=== PATIENT | female | born 1955 | race Caucasian/White ===

== ENCOUNTER 2017-06-10 06:44 | Outpatient (CLI) | payer BC ==
--- NOTE | 2017-06-10 10:26 | MRI ---
MRI BRAIN WITH AND WITHOUT IV CONTRAST: DATE: 06/10/17. HISTORY: Cognitive decline. COMPARISON: Studies on 02/09/16 and 03/01/16. FINDINGS: Again noted are increased punctate and patchy areas of increased FLAIR and T2 weighted signal intensi ty in the periventricular and subcortical white matter most likely reflective of moderate chronic sma ll-vessel ischemic changes. There is no evidence of an acute infarction. No abnormal areas of enhan cement are seen after the administration of intravenous contrast. Mild cerebral volume loss is present. Septum pellucidum and third ventricle are in the midline. The ventricular system is normal in size, shape, and position for the degree of sulcal atrophy. Normal flow voids are demonstrated at the base of the brain. There has been no interval change when compare d to the prior exam. IMPRESSION: 1. No acute intracranial abnormalities demonstrated. 2. Stable chronic small-vessel ischemic changes and cerebral volume loss. 3. Minimal mucosal thickening in left sphenoid sinus. POS: [facility]
[2017-06-10] MEDS ORDERED: Gadobenate Dimeglumine 529 MG/1 ML (20ML VIAL) ONE (16:49)
== END 2017-06-10 06:45 | disposition home or self-care (01) ==
LOC: MRI 06:44
PROVIDERS: ATTEND Family Medicine
DX: R41.81 Age-related cognitive decline (principal); J34.89 Other specified disorders of nose and nasal sinuses; R94.02 Abnormal brain scan
CPT/HCPCS: 36415; 70553; 82565; A9579

== ENCOUNTER 2017-07-16 10:17 | Outpatient (CLI) | payer BC | END 2017-07-16 10:18 | disposition home or self-care (01) | LOC: BICMAMMO 10:17 | PROVIDERS: ATTEND Family Medicine | DX: Z12.31 Encounter for screening mammogram for malignant neoplasm of breast (principal); R41.89 Other symptoms and signs involving cognitive functions and awareness | CPT/HCPCS: 77063; 77067 ==

== ENCOUNTER 2018-05-01 07:53 | Outpatient (CLI) | payer BC ==
--- NOTE | 2018-05-01 09:42 | ULT ---
ULTRASOUND HEPATIC DOPPLER DUPLEX: DATE: 05/01/2018. HISTORY: 62-year-old female with cirrhosis. TECHNIQUE: Villanueva scale images of liver and spleen. Color flow and spectral analysis of major blood vessels is associated with the liver. FINDINGS: No hepatomegaly. Hepatic echotexture is diffusely coarse. Hepatic margins are mildly nodular. Gallbladder is surgically absent. The common duct caliber is 7 mm. Spleen is 15.5 x 6 x 5.5 cm. Lobular splenic hilum. Prominent blood vessels at the splenic hilum. Hepatopetal flow with appropriate waveforms in main, left, and right portal veins. Hepatofugal flow with appropriate waveforms in right, middle, and left hepatic veins. Hepatic artery flow demonstrated. IMPRESSION: 1. Hepatic cirrhosis. 2. Splenomegaly. POS: [facility]
== END 2018-05-01 07:54 | disposition home or self-care (01) ==
LOC: BICULT 07:53
PROVIDERS: ATTEND Internal Medicine Gastroenterology
DX: K75.4 Autoimmune hepatitis (principal); K74.60 Unspecified cirrhosis of liver; R16.1 Splenomegaly, not elsewhere classified; Z86.010 Personal history of colon polyps
CPT/HCPCS: 76705

== ENCOUNTER 2020-11-17 22:45 | Inpatient (IN) | payer MEDICARE ==
[2020-11-18] MEDS ORDERED: Lactulose 10 GM/15 ML Oral Solution PR SCH ×2 (01:45)
[2020-11-18] MEDS ORDERED: Albumin 25% 25 GM/100 ML BOT IVPB SCH (02:15)
[2020-11-18] MEDS: cefTRIAXone\\ROCEPHIN 1 GM in Sodium Chloride 0.9% 100 ML IVPB SCH (04:46)
[2020-11-18 07:19] LABS: #Eosinphils 0.2 thou/uL (0.0-0.7); #Lymphocytes 0.9 thou/uL (1.20-3.40); #Monocytes 0.3 thou/uL (0.11-0.59); #Neutrophils 4.8 thou/uL (1.40-6.50); %Basophils 0.1 % (0.0-1.0); %Eosinophils 2.8 % (0.0-10.0); %Lymphocytes 14.2 % (21.0-51.0); %Monocytes 5.1 % (0.0-10.0); %Neutrophils 77.8 % (42.0-75.0); Hemoglobin 10.3 g/dL (12.0-16.0); Mean Corpuscular HGB CONC 33.1 g/dL (32.0-36.0); Mean Corpuscular Hemoglobin 33.2 pg (27.0-31.0); Mean Platelet Volume 11.7 fL (7.4-10.4); Platelet Count 35 thou/uL (130-400); RBC Distribution Width 18.4 % (11.5-14.5); Red Blood Cell (RBC) Count 3.12 mill/uL (4.20-5.40); White Blood Cell (WBC) Count 6.2 thou/uL (4.8-10.8)
[2020-11-18 07:25] LABS: ALT (SGPT) 115 U/L (8-55); AST (SGOT) 243 U/L (5-34); Albumin 2.4 g/dL (3.4-4.8); Alkaline Phosphatase 136 U/L (40-110); Anion Gap 18 mmol/L (10-20); BUN (Urea Nitrogen) 101 mg/dL (9.8-20.1); Bilirubin, Total 6.6 mg/dL (0.2-1.2); Calc. Creatinine Clearance 33 mL/min (70-130); Calcium 8.5 mg/dL (7.8-10.44); Carbon Dioxide 22 mmol/L (23-31); Chloride 100 mmol/L (98-107); Globulin 3.8 g/dL (2.4-3.5); Glucose 95 mg/dL (80-115); Potassium 4.6 mmol/L (3.5-5.1); Protein, Total 6.2 g/dL (5.8-8.1); Sodium 135 mmol/L (136-145)
[2020-11-18] MEDS: Albumin 25% 25 GM/100 ML BOT IVPB SCH ×3 (08:47→23:03)
[2020-11-18] MEDS ORDERED: Pantoprazole 40 MG VIAL IVP SCH (09:00)
[2020-11-18 12:51] LABS: SARS-CoV-2 PCR by NAA Not Detected (NotDetected)
[2020-11-18] MEDS: Midodrine HCl 5 MG TAB PO SCH ×2 (15:45→21:13)
[2020-11-18] MEDS: methylPREDNISolone Sod Succ 40 MG VIAL IVP SCH (15:45)
[2020-11-18] MEDS ORDERED: Vancomycin HCl 1.75 GM in Sodium Chloride 0.9% 500 ML IVPB SCH (18:15)
[2020-11-18] MEDS ORDERED: Vancomycin HCl 1 GM in Premix Bag 1 BAG IVPB SCH (18:15)
[2020-11-18] MEDS: Donepezil HCl 10 MG TAB PER TUBE SCH (21:13)
[2020-11-18] MEDS: Octreotide Acetate 100 MCG/ML VIAL SC SCH (22:19)
[2020-11-19] MEDS: methylPREDNISolone Sod Succ 40 MG VIAL IVP SCH ×2 (01:30→14:27)
[2020-11-19] MEDS: cefTRIAXone\\ROCEPHIN 1 GM in Sodium Chloride 0.9% 100 ML IVPB SCH (04:25)
[2020-11-19 05:02] LABS: HBCM Index 0.07 S/CO (0-0.79); HBSAg Index 0.29 S/CO (0-0.99); Hep A IgM AB Non-Reactive (NonReactive); Hep A IgM S/CO 0.12 S/CO (0-0.79); Hep B Surf Ag Non-Reactive S/CO (NonReactive); Hep C IgG Ab Non-Reactive (NonReactive); Hep C Index 0.15 S/CO (0-0.79); Hepatitis B Core IgM Abs Non-Reactive (NonReactive)
[2020-11-19 05:37] LABS: INR-International Normal Ratio 2.2; Prothrombin Time 24.8 sec (12.0-14.7)
[2020-11-19 05:43] LABS: Albumin 3.3 g/dL (3.4-4.8); Hemoglobin 9.3 g/dL (12.0-16.0); Mean Corpuscular HGB CONC 34.3 g/dL (32.0-36.0); Mean Corpuscular Hemoglobin 34.5 pg (27.0-31.0); Mean Platelet Volume 11.9 fL (7.4-10.4); Platelet Count 29 thou/uL (130-400); RBC Distribution Width 18.4 % (11.5-14.5); Red Blood Cell (RBC) Count 2.68 mill/uL (4.20-5.40); White Blood Cell (WBC) Count 2.8 thou/uL (4.8-10.8)
[2020-11-19 05:44] LABS: Chloride 108 mmol/L (98-107); Potassium 3.9 mmol/L (3.5-5.1); Sodium 145 mmol/L (136-145)
[2020-11-19 05:45] LABS: Calcium 8.8 mg/dL (7.8-10.44); Glucose 186 mg/dL (80-115)
[2020-11-19 05:46] LABS: Globulin 3.4 g/dL (2.4-3.5); Protein, Total 6.7 g/dL (5.8-8.1)
[2020-11-19 05:47] LABS: Anion Gap 20 mmol/L (10-20); Bilirubin, Total 5.1 mg/dL (0.2-1.2); Carbon Dioxide 21 mmol/L (23-31)
[2020-11-19 05:48] LABS: Alkaline Phosphatase 109 U/L (40-110)
[2020-11-19 05:49] LABS: Calc. Creatinine Clearance 32 mL/min (70-130)
[2020-11-19 05:50] LABS: BUN (Urea Nitrogen) 111 mg/dL (9.8-20.1)
[2020-11-19 05:51] LABS: ALT (SGPT) 97 U/L (8-55); AST (SGOT) 207 U/L (5-34)
[2020-11-19 06:14] LABS: Protein, Urine Random Quant 11 mg/dL (1-14); Sodium, Urine Less than 20 mmol/L (Not Available); Urea Nitrogen, Random Urine 744 mg/dl
[2020-11-19 06:14] LABS: #Eosinphils 0.1 thou/uL (0.0-0.7); #Lymphocytes 0.2 thou/uL (1.20-3.40); #Monocytes 0.1 thou/uL (0.11-0.59); #Neutrophils 2.4 thou/uL (1.40-6.50); %Eosinophils 2.9 % (0.0-10.0); %Lymphocytes 8.5 % (21.0-51.0); %Monocytes 5.1 % (0.0-10.0); %Neutrophils 83.6 % (42.0-75.0); Platelet Morphology Comment Appears Decreased
[2020-11-19] MEDS: Octreotide Acetate 100 MCG/ML VIAL SC SCH ×3 (06:28→21:27)
[2020-11-19] MEDS ORDERED: Sodium Bicarbonate 150 MEQ in Dextrose 5% in Water 1,000 ML IV SCH (09:15)
[2020-11-19] MEDS: Donepezil HCl 10 MG TAB PER TUBE SCH ×2 (10:02→20:49)
[2020-11-19] MEDS: Ferrous Gluconate 324 MG TAB PO SCH (10:02)
[2020-11-19] MEDS: azaTHIOprine 50 MG TAB PO SCH (10:02)
[2020-11-19] MEDS: Albumin 25% 25 GM/100 ML BOT IVPB SCH ×3 (10:03→20:49)
[2020-11-19] MEDS: Midodrine HCl 5 MG TAB PO SCH ×3 (10:03→20:49)
[2020-11-19] MEDS: Pantoprazole 40 MG GRANULES PACKET PER TUBE SCH (10:03)
[2020-11-19 18:23] LABS: Vancomycin, Random 23.2 ug/mL (See Comment)
[2020-11-20] MEDS: methylPREDNISolone Sod Succ 40 MG VIAL IVP SCH ×2 (02:53→13:44)
[2020-11-20] MEDS: Albumin 25% 25 GM/100 ML BOT IVPB SCH ×4 (02:54→22:23)
[2020-11-20] MEDS: cefTRIAXone\\ROCEPHIN 1 GM in Sodium Chloride 0.9% 100 ML IVPB SCH (04:00)
[2020-11-20] MEDS: Octreotide Acetate 100 MCG/ML VIAL SC SCH ×3 (05:20→22:23)
[2020-11-20 07:36] LABS: Hemoglobin 7.9 g/dL (12.0-16.0); Mean Corpuscular HGB CONC 33.5 g/dL (32.0-36.0); Mean Platelet Volume 11.9 fL (7.4-10.4); Platelet Count 21 thou/uL (130-400); RBC Distribution Width 18.5 % (11.5-14.5); Red Blood Cell (RBC) Count 2.31 mill/uL (4.20-5.40)
[2020-11-20 07:52] LABS: ALT (SGPT) 68 U/L (8-55); AST (SGOT) 122 U/L (5-34); Albumin 3.6 g/dL (3.4-4.8); Alkaline Phosphatase 82 U/L (40-110); Anion Gap 17 mmol/L (10-20); BUN (Urea Nitrogen) 111 mg/dL (9.8-20.1); Bilirubin, Total 3.6 mg/dL (0.2-1.2); Calc. Creatinine Clearance 34 mL/min (70-130); Calcium 9.3 mg/dL (7.8-10.44); Carbon Dioxide 25 mmol/L (23-31); Chloride 109 mmol/L (98-107); Globulin 2.6 g/dL (2.4-3.5); Glucose 175 mg/dL (80-115); Protein, Total 6.2 g/dL (5.8-8.1); Sodium 148 mmol/L (136-145)
[2020-11-20 07:57] LABS: Potassium 2.8 mmol/L (3.5-5.1)
[2020-11-20] MEDS: Pantoprazole 40 MG GRANULES PACKET PER TUBE SCH (08:04)
[2020-11-20] MEDS: Midodrine HCl 5 MG TAB PO SCH ×3 (08:04→20:13)
[2020-11-20] MEDS: Donepezil HCl 10 MG TAB PER TUBE SCH ×2 (08:04→20:14)
[2020-11-20] MEDS: Ferrous Gluconate 324 MG TAB PO SCH (08:04)
[2020-11-20] MEDS: azaTHIOprine 50 MG TAB PO SCH (08:04)
[2020-11-20 09:21] LABS: Magnesium 3.2 mg/dL (1.6-2.6)
[2020-11-20 09:22] LABS: Phosphorus 3.2 mg/dL (2.3-4.7)
[2020-11-20] MEDS: Potassium Chloride 20 MEQ TAB PER TUBE SCH ×2 (13:43→16:37)
[2020-11-20 22:09] LABS: Vancomycin, Random 15.9 ug/mL (See Comment)
[2020-11-20] MEDS ORDERED: Vancomycin HCl 750 MG in Sodium Chloride 0.9% 250 ML 250 ML IVPB SCH (23:00)
[2020-11-21] MEDS: methylPREDNISolone Sod Succ 40 MG VIAL IVP SCH ×2 (01:43→14:15)
[2020-11-21] MEDS: cefTRIAXone\\ROCEPHIN 1 GM in Sodium Chloride 0.9% 100 ML IVPB SCH (03:03)
[2020-11-21] MEDS: Albumin 25% 25 GM/100 ML BOT IVPB SCH (05:03)
[2020-11-21] MEDS: Octreotide Acetate 100 MCG/ML VIAL SC SCH ×3 (05:22→22:41)
[2020-11-21 06:40] LABS: Hemoglobin 7.3 g/dL (12.0-16.0); Mean Corpuscular HGB CONC 32.8 g/dL (32.0-36.0); Mean Corpuscular Hemoglobin 33.6 pg (27.0-31.0); Mean Platelet Volume 10.7 fL (7.4-10.4); Platelet Count 33 thou/uL (130-400); RBC Distribution Width 18.4 % (11.5-14.5); Red Blood Cell (RBC) Count 2.16 mill/uL (4.20-5.40)
[2020-11-21 07:08] LABS: ALT (SGPT) 56 U/L (8-55); AST (SGOT) 86 U/L (5-34); Albumin 4.2 g/dL (3.4-4.8); Alkaline Phosphatase 74 U/L (40-110); Anion Gap 16 mmol/L (10-20); BUN (Urea Nitrogen) 115 mg/dL (9.8-20.1); Bilirubin, Total 3.4 mg/dL (0.2-1.2); Calc. Creatinine Clearance 35 mL/min (70-130); Calcium 9.4 mg/dL (7.8-10.44); Carbon Dioxide 29 mmol/L (23-31); Chloride 115 mmol/L (98-107); Globulin 2.2 g/dL (2.4-3.5); Glucose 185 mg/dL (80-115); Protein, Total 6.4 g/dL (5.8-8.1); Sodium 157 mmol/L (136-145)
[2020-11-21] MEDS: Ferrous Gluconate 324 MG TAB PO SCH (08:43)
[2020-11-21] MEDS: Midodrine HCl 5 MG TAB PO SCH ×3 (08:43→21:10)
[2020-11-21] MEDS: Donepezil HCl 10 MG TAB PER TUBE SCH ×2 (08:43→21:10)
[2020-11-21] MEDS: azaTHIOprine 50 MG TAB PO SCH (08:43)
[2020-11-21] MEDS: Pantoprazole 40 MG GRANULES PACKET PER TUBE SCH (08:43)
[2020-11-21] MEDS: Potassium Chloride 20 MEQ TAB PO SCH ×4 (10:20→21:10)
[2020-11-21] MEDS ORDERED: Dextrose 5% in Water 1,000 ML IV SCH (13:15)
[2020-11-21 22:39] LABS: Vancomycin, Random 21.9 ug/mL (See Comment)
[2020-11-22] MEDS: methylPREDNISolone Sod Succ 40 MG VIAL IVP SCH ×2 (02:02→13:59)
[2020-11-22 04:33] LABS: Hemoglobin 8.1 g/dL (12.0-16.0); Mean Corpuscular HGB CONC 32.5 g/dL (32.0-36.0); Mean Corpuscular Hemoglobin 33.9 pg (27.0-31.0); Mean Platelet Volume 10.4 fL (7.4-10.4); Platelet Count 39 thou/uL (130-400); RBC Distribution Width 18.8 % (11.5-14.5); Red Blood Cell (RBC) Count 2.38 mill/uL (4.20-5.40); White Blood Cell (WBC) Count 4.8 thou/uL (4.8-10.8)
[2020-11-22 04:38] LABS: ALT (SGPT) 53 U/L (8-55); AST (SGOT) 69 U/L (5-34); Alkaline Phosphatase 98 U/L (40-110); Anion Gap 11 mmol/L (10-20); BUN (Urea Nitrogen) 113 mg/dL (9.8-20.1); Bilirubin, Total 3.7 mg/dL (0.2-1.2); Calc. Creatinine Clearance 36 mL/min (70-130); Calcium 9.4 mg/dL (7.8-10.44); Carbon Dioxide 31 mmol/L (23-31); Chloride 120 mmol/L (98-107); Globulin 2.5 g/dL (2.4-3.5); Glucose 285 mg/dL (80-115); Potassium 3.9 mmol/L (3.5-5.1); Protein, Total 6.5 g/dL (5.8-8.1); Sodium 158 mmol/L (136-145)
[2020-11-22] MEDS: cefTRIAXone\\ROCEPHIN 1 GM in Sodium Chloride 0.9% 100 ML IVPB SCH (05:49)
[2020-11-22] MEDS: Octreotide Acetate 100 MCG/ML VIAL SC SCH ×3 (05:55→21:08)
[2020-11-22] MEDS: azaTHIOprine 50 MG TAB PO SCH (08:11)
[2020-11-22] MEDS: Donepezil HCl 10 MG TAB PER TUBE SCH ×2 (08:11→20:25)
[2020-11-22] MEDS: Midodrine HCl 5 MG TAB PO SCH ×3 (08:11→20:25)
[2020-11-22] MEDS: Pantoprazole 40 MG GRANULES PACKET PER TUBE SCH (08:11)
[2020-11-22] MEDS: Ferrous Gluconate 324 MG TAB PO SCH (08:11)
[2020-11-22] MEDS: Dextrose 5% in Water 1,000 ML IV SCH ×2 (09:43→17:54)
[2020-11-22 16:06] LABS: Anion Gap 12 mmol/L (10-20); BUN (Urea Nitrogen) 108 mg/dL (9.8-20.1); Calc. Creatinine Clearance 37 mL/min (70-130); Calcium 8.9 mg/dL (7.8-10.44); Carbon Dioxide 29 mmol/L (23-31); Chloride 115 mmol/L (98-107); Glucose 381 mg/dL (80-115); Potassium 3.6 mmol/L (3.5-5.1); Sodium 152 mmol/L (136-145)
[2020-11-22 23:41] LABS: Vancomycin, Random 15.5 ug/mL (See Comment)
[2020-11-22] MEDS ORDERED: Vancomycin HCl 500 MG in Sodium Chloride 0.9% 100 ML IVPB SCH (23:59)
[2020-11-23] MEDS: methylPREDNISolone Sod Succ 40 MG VIAL IVP SCH ×2 (01:08→14:34)
[2020-11-23] MEDS: Dextrose 5% in Water 1,000 ML IV SCH (04:36)
[2020-11-23] MEDS: cefTRIAXone\\ROCEPHIN 1 GM in Sodium Chloride 0.9% 100 ML IVPB SCH (04:36)
[2020-11-23] MEDS: Octreotide Acetate 100 MCG/ML VIAL SC SCH ×3 (05:17→21:35)
[2020-11-23 07:14] LABS: Mean Corpuscular HGB CONC 32.4 g/dL (32.0-36.0); Mean Corpuscular Hemoglobin 33.7 pg (27.0-31.0); Mean Platelet Volume 12.4 fL (7.4-10.4); Platelet Count 30 thou/uL (130-400); RBC Distribution Width 18.7 % (11.5-14.5); Red Blood Cell (RBC) Count 2.67 mill/uL (4.20-5.40); White Blood Cell (WBC) Count 7.6 thou/uL (4.8-10.8)
[2020-11-23 07:19] LABS: ALT (SGPT) 44 U/L (8-55); AST (SGOT) 47 U/L (5-34); Albumin 3.4 g/dL (3.4-4.8); Alkaline Phosphatase 86 U/L (40-110); Anion Gap 12 mmol/L (10-20); BUN (Urea Nitrogen) 104 mg/dL (9.8-20.1); Bilirubin, Total 4.5 mg/dL (0.2-1.2); Calc. Creatinine Clearance 42 mL/min (70-130); Calcium 8.5 mg/dL (7.8-10.44); Carbon Dioxide 28 mmol/L (23-31); Chloride 109 mmol/L (98-107); Globulin 2.5 g/dL (2.4-3.5); Glucose 299 mg/dL (80-115); Potassium 3.5 mmol/L (3.5-5.1); Protein, Total 5.9 g/dL (5.8-8.1); Sodium 145 mmol/L (136-145)
[2020-11-23] MEDS: Pantoprazole 40 MG GRANULES PACKET PER TUBE SCH (08:06)
[2020-11-23] MEDS: Midodrine HCl 5 MG TAB PO SCH ×3 (08:06→21:35)
[2020-11-23] MEDS: azaTHIOprine 50 MG TAB PO SCH (08:06)
[2020-11-23] MEDS: Donepezil HCl 10 MG TAB PER TUBE SCH ×2 (08:06→21:35)
[2020-11-23] MEDS ORDERED: Potassium Chloride 20 MEQ TAB PER TUBE SCH (14:15)
[2020-11-23 23:57] LABS: Vancomycin, Random 15.5 ug/mL (See Comment)
[2020-11-24] MEDS: Scopolamine 1.5 mg/72 hour Patch TD SCH (00:03)
[2020-11-24] MEDS ORDERED: Vancomycin HCl 500 MG in Sodium Chloride 0.9% 100 ML IVPB SCH (00:30)
[2020-11-24] MEDS: methylPREDNISolone Sod Succ 40 MG VIAL IVP SCH ×2 (01:13→14:20)
[2020-11-24] MEDS: cefTRIAXone\\ROCEPHIN 1 GM in Sodium Chloride 0.9% 100 ML IVPB SCH (03:58)
[2020-11-24] MEDS: Octreotide Acetate 100 MCG/ML VIAL SC SCH (06:23)
[2020-11-24 06:36] LABS: Hemoglobin 8.8 g/dL (12.0-16.0); Mean Corpuscular HGB CONC 32.6 g/dL (32.0-36.0); Mean Corpuscular Hemoglobin 33.6 pg (27.0-31.0); Mean Platelet Volume 12.1 fL (7.4-10.4); Platelet Count 30 thou/uL (130-400); RBC Distribution Width 18.3 % (11.5-14.5); Red Blood Cell (RBC) Count 2.63 mill/uL (4.20-5.40); White Blood Cell (WBC) Count 8.8 thou/uL (4.8-10.8)
[2020-11-24 06:45] LABS: ALT (SGPT) 42 U/L (8-55); AST (SGOT) 40 U/L (5-34); Albumin 3.1 g/dL (3.4-4.8); Alkaline Phosphatase 90 U/L (40-110); Anion Gap 12 mmol/L (10-20); BUN (Urea Nitrogen) 108 mg/dL (9.8-20.1); Bilirubin, Total 5.4 mg/dL (0.2-1.2); Calc. Creatinine Clearance 43 mL/min (70-130); Calcium 8.4 mg/dL (7.8-10.44); Carbon Dioxide 26 mmol/L (23-31); Chloride 109 mmol/L (98-107); Globulin 2.5 g/dL (2.4-3.5); Glucose 411 mg/dL (80-115); INR-International Normal Ratio 3.1; Protein, Total 5.6 g/dL (5.8-8.1); Prothrombin Time 32.3 sec (12.0-14.7); Sodium 143 mmol/L (136-145)
[2020-11-24] MEDS: Lactated Ringer's 1,000 ML IV SCH ×2 (09:10→18:19)
[2020-11-24] MEDS: Pantoprazole 40 MG GRANULES PACKET PER TUBE SCH (09:11)
[2020-11-24] MEDS: azaTHIOprine 50 MG TAB PO SCH (09:11)
[2020-11-24] MEDS: Midodrine HCl 5 MG TAB PO SCH (09:11)
[2020-11-24 16:50] LABS: Albumin 3.1 g/dL (3.4-4.8); Anion Gap 14 mmol/L (10-20); BUN (Urea Nitrogen) 108 mg/dL (9.8-20.1); BUN/Creatinine Ratio 57.45; Calc. Creatinine Clearance 46 mL/min (70-130); Calcium 8.4 mg/dL (7.8-10.44); Carbon Dioxide 23 mmol/L (23-31); Chloride 112 mmol/L (98-107); Glucose 438 mg/dL (80-115); Phosphorus 2.3 mg/dL (2.3-4.7); Potassium 4.8 mmol/L (3.5-5.1); Sodium 144 mmol/L (136-145)
[2020-11-24] MEDS ORDERED: Dextrose 50% Abboject 50 ML SYRINGE SLOW IVP PRN (19:40)
[2020-11-24] MEDS ORDERED: Dextrose 5% in Water 1,000 ML IV PRN (19:40)
[2020-11-24] MEDS: HumaLOG 300 UNITS/3 ML VIAL SC PRN (21:14)
[2020-11-25] MEDS: methylPREDNISolone Sod Succ 40 MG VIAL IVP SCH ×2 (02:01→14:54)
[2020-11-25] MEDS: Lactated Ringer's 1,000 ML IV SCH ×2 (03:42→14:54)
[2020-11-25] MEDS: HumaLOG 300 UNITS/3 ML VIAL SC PRN ×4 (04:01→21:03)
[2020-11-25 06:23] LABS: Mean Corpuscular HGB CONC 33.2 g/dL (32.0-36.0); Mean Corpuscular Hemoglobin 34.4 pg (27.0-31.0); Mean Platelet Volume 12.7 fL (7.4-10.4); Platelet Count 28 thou/uL (130-400); RBC Distribution Width 18.6 % (11.5-14.5); Red Blood Cell (RBC) Count 2.63 mill/uL (4.20-5.40); White Blood Cell (WBC) Count 13.9 thou/uL (4.8-10.8)
[2020-11-25 06:40] LABS: Phosphorus 2.1 mg/dL (2.3-4.7)
[2020-11-25 06:45] LABS: ALT (SGPT) 43 U/L (8-55); AST (SGOT) 48 U/L (5-34); Albumin 2.8 g/dL (3.4-4.8); Alkaline Phosphatase 86 U/L (40-110); Anion Gap 11 mmol/L (10-20); BUN (Urea Nitrogen) 107 mg/dL (9.8-20.1); Bilirubin, Total 5.3 mg/dL (0.2-1.2); Calc. Creatinine Clearance 46 mL/min (70-130); Calcium 8.5 mg/dL (7.8-10.44); Carbon Dioxide 25 mmol/L (23-31); Chloride 113 mmol/L (98-107); Globulin 2.6 g/dL (2.4-3.5); Glucose 419 mg/dL (80-115); Magnesium 2.8 mg/dL (1.6-2.6); Potassium 3.9 mmol/L (3.5-5.1); Protein, Total 5.4 g/dL (5.8-8.1); Sodium 145 mmol/L (136-145)
[2020-11-25] MEDS: Pantoprazole 40 MG GRANULES PACKET PER TUBE SCH (09:19)
[2020-11-25] MEDS: azaTHIOprine 50 MG TAB PO SCH (09:19)
[2020-11-26 01:01] LABS: SARS-CoV-2 PCR by NAA Not Detected (NotDetected)
[2020-11-26] MEDS: Lactated Ringer's 1,000 ML IV SCH ×3 (02:48→19:44)
[2020-11-26] MEDS: methylPREDNISolone Sod Succ 40 MG VIAL IVP SCH ×2 (02:54→14:50)
[2020-11-26] MEDS: Pantoprazole 40 MG GRANULES PACKET PER TUBE SCH (09:16)
[2020-11-26] MEDS: azaTHIOprine 50 MG TAB PO SCH (09:16)
[2020-11-26] MEDS: Lantus 1000 UNITS/10 ML VIAL SC SCH (09:17)
[2020-11-26] MEDS ORDERED: traMADol HCl 50 MG TAB PO PRN (10:12)
[2020-11-26 10:45] LABS: INR-International Normal Ratio 3.2; Prothrombin Time 32.6 sec (12.0-14.7)
[2020-11-26 10:57] LABS: ALT (SGPT) 67 U/L (8-55); AST (SGOT) 93 U/L (5-34); Albumin 2.8 g/dL (3.4-4.8); Alkaline Phosphatase 79 U/L (40-110); Anion Gap 16 mmol/L (10-20); BUN (Urea Nitrogen) 99 mg/dL (9.8-20.1); Calc. Creatinine Clearance 49 mL/min (70-130); Calcium 8.5 mg/dL (7.8-10.44); Carbon Dioxide 21 mmol/L (23-31); Chloride 114 mmol/L (98-107); Globulin 2.3 g/dL (2.4-3.5); Glucose 292 mg/dL (80-115); Potassium 3.8 mmol/L (3.5-5.1); Protein, Total 5.1 g/dL (5.8-8.1); Sodium 147 mmol/L (136-145)
[2020-11-26] MEDS ORDERED: Sodium Chloride 0.9% (PF) 10 ML VIAL FS PRN (11:00)
[2020-11-26] MEDS: Morphine 2 MG/ML VIAL SLOW IVP PRN ×2 (11:08→16:57)
[2020-11-26 11:15] LABS: Anisocytosis SLIGHT = 6-15 cells (100X) (0-5/hpf); Hemoglobin 8.2 g/dL (12.0-16.0); Hypersemented Neutrophil SLIGHT; Lymphocytes 4 % (21-51); MDiff Complete? YES; Mean Corpuscular Hemoglobin 34.3 pg (27.0-31.0); Mean Platelet Volume 12.6 fL (7.4-10.4); Monocytes 1 % (0-10); Neutrophil 95 % (42-75); Nucleated RBC 3 % (0); Ovalocytes SLIGHT = 2-5 cells (100X) (0-1/hpf); Platelet Count 29 thou/uL (130-400); Platelet Morphology Comment Appears Decreased; Polychromasia SLIGHT = 2-3 cells (100X) (0-2/hpf); RBC Distribution Width 19.2 % (11.5-14.5); Red Blood Cell (RBC) Count 2.38 mill/uL (4.20-5.40); White Blood Cell (WBC) Count 14.1 thou/uL (4.8-10.8)
[2020-11-26] MEDS ORDERED: Potassium Phosphate 30 MMOL in Sodium Chloride 0.9% 250 ML 250 ML IVPB SCH (13:00)
[2020-11-26] MEDS ORDERED: Phytonadione 10 MG/ML AMP SC SCH (13:00)
[2020-11-26] MEDS: HumaLOG 300 UNITS/3 ML VIAL SC PRN ×3 (14:32→21:57)
[2020-11-26] MEDS: Nystatin Cream 30 GM TUBE TOP SCH ×2 (15:17→19:43)
[2020-11-26 18:17] LABS: Bilirubin Negative (Negative); Blood, Urine 2+ (Negative); Clarity Turbid (Clear); Glucose, Urine (Dipstick) Normal (Negative); Ketone, Urine Negative (Negative); Leukocyte 500 Leu/uL (Negative); Nitrite Negative (Negative); Protein, Urine (Dipstick) 20 mg/dL (Neg-Trace); RBC/HPF 21-50 HPF (0-3); Specific Gravity, Urine 1.018 (1.002-1.036); Squamous Epithelial 0-3 HPF (0-3); Urobilinogen Normal mg/dL (Less than 2); WBC/HPF Greater than 50 HPF (0-3)
[2020-11-26 18:24] LABS: Bacteria/HPF 2+ HPF (None Seen); Yeast-Budding 2+ HPF (None Seen)
[2020-11-26 18:26] LABS: Urine Culture Reflex Yes Yes
[2020-11-26 18:56] LABS: Hemoglobin 7.7 g/dL (12.0-16.0); Mean Corpuscular HGB CONC 33.4 g/dL (32.0-36.0); Mean Corpuscular Hemoglobin 34.6 pg (27.0-31.0); Mean Platelet Volume 11.8 fL (7.4-10.4); Platelet Count 37 thou/uL (130-400); RBC Distribution Width 19.1 % (11.5-14.5); Red Blood Cell (RBC) Count 2.23 mill/uL (4.20-5.40); White Blood Cell (WBC) Count 8.9 thou/uL (4.8-10.8)
[2020-11-26] MEDS: Scopolamine 1.5 mg/72 hour Patch TD SCH (19:43)
[2020-11-26] MEDS: Pantoprazole 40 MG VIAL IVP SCH (21:50)
[2020-11-26 22:57] LABS: Hemoglobin 7.2 g/dL (12.0-16.0); Mean Corpuscular HGB CONC 34.5 g/dL (32.0-36.0); Mean Corpuscular Hemoglobin 35.5 pg (27.0-31.0); Mean Platelet Volume 11.5 fL (7.4-10.4); Platelet Count 36 thou/uL (130-400); RBC Distribution Width 19.2 % (11.5-14.5); Red Blood Cell (RBC) Count 2.02 mill/uL (4.20-5.40)
[2020-11-27 06:10] LABS: #Lymphocytes 0.7 thou/uL (1.20-3.40); #Monocytes 0.3 thou/uL (0.11-0.59); #Neutrophils 8.7 thou/uL (1.40-6.50); %Eosinophils 0.1 % (0.0-10.0); %Lymphocytes 6.8 % (21.0-51.0); %Monocytes 3.5 % (0.0-10.0); %Neutrophils 89.6 % (42.0-75.0); Hemoglobin 7.7 g/dL (12.0-16.0); Mean Corpuscular HGB CONC 33.3 g/dL (32.0-36.0); Mean Corpuscular Hemoglobin 34.6 pg (27.0-31.0); Mean Platelet Volume 11.8 fL (7.4-10.4); Platelet Count 35 thou/uL (130-400); RBC Distribution Width 18.9 % (11.5-14.5); Red Blood Cell (RBC) Count 2.22 mill/uL (4.20-5.40); White Blood Cell (WBC) Count 9.7 thou/uL (4.8-10.8)
[2020-11-27] MEDS: Lactated Ringer's 1,000 ML IV SCH ×4 (06:18→20:13)
[2020-11-27 06:19] LABS: INR-International Normal Ratio 2.6; Prothrombin Time 28.3 sec (12.0-14.7)
[2020-11-27] MEDS: HumaLOG 300 UNITS/3 ML VIAL SC PRN ×3 (06:19→19:38)
[2020-11-27 06:38] LABS: Phosphorus 5.4 mg/dL (2.3-4.7)
[2020-11-27 06:46] LABS: ALT (SGPT) 81 U/L (8-55); AST (SGOT) 110 U/L (5-34); Albumin 2.7 g/dL (3.4-4.8); Alkaline Phosphatase 86 U/L (40-110); Anion Gap 19 mmol/L (10-20); BUN (Urea Nitrogen) 106 mg/dL (9.8-20.1); Bilirubin, Total 7.4 mg/dL (0.2-1.2); Calc. Creatinine Clearance 47 mL/min (70-130); Calcium 8.4 mg/dL (7.8-10.44); Carbon Dioxide 19 mmol/L (23-31); Chloride 115 mmol/L (98-107); Globulin 2.4 g/dL (2.4-3.5); Glucose 313 mg/dL (80-115); Potassium 4.4 mmol/L (3.5-5.1); Protein, Total 5.1 g/dL (5.8-8.1); Sodium 149 mmol/L (136-145)
[2020-11-27 09:53] LABS: Mean Corpuscular HGB CONC 33.5 g/dL (32.0-36.0); Mean Corpuscular Hemoglobin 34.7 pg (27.0-31.0); Mean Platelet Volume 12.3 fL (7.4-10.4); Platelet Count 36 thou/uL (130-400); RBC Distribution Width 19.4 % (11.5-14.5); Red Blood Cell (RBC) Count 2.01 mill/uL (4.20-5.40); White Blood Cell (WBC) Count 10.9 thou/uL (4.8-10.8)
[2020-11-27] MEDS: azaTHIOprine 50 MG TAB PO SCH (10:00)
[2020-11-27] MEDS: methylPREDNISolone Sod Succ 40 MG VIAL IVP SCH (10:00)
[2020-11-27] MEDS: Lantus 1000 UNITS/10 ML VIAL SC SCH (10:01)
[2020-11-27] MEDS: Pantoprazole 40 MG VIAL IVP SCH ×2 (10:02→20:12)
[2020-11-27] MEDS: Nystatin Cream 30 GM TUBE TOP SCH ×3 (10:02→20:13)
[2020-11-27] MEDS: cefTRIAXone\\ROCEPHIN 1 GM in Sodium Chloride 0.9% 100 ML IVPB SCH (10:07)
[2020-11-27 18:48] LABS: Albumin 2.5 g/dL (3.4-4.8); Anion Gap 19 mmol/L (10-20); BUN (Urea Nitrogen) 113 mg/dL (9.8-20.1); BUN/Creatinine Ratio 61.75; Calc. Creatinine Clearance 47 mL/min (70-130); Carbon Dioxide 18 mmol/L (23-31); Chloride 120 mmol/L (98-107); Glucose 258 mg/dL (80-115); Potassium 5.5 mmol/L (3.5-5.1); Sodium 151 mmol/L (136-145)
[2020-11-27] MEDS: Metoclopramide HCl 10 MG/2 ML VIAL IVP SCH (20:12)
[2020-11-28] MEDS: Morphine 2 MG/ML VIAL SLOW IVP PRN (00:47)
[2020-11-28] MEDS: Metoclopramide HCl 10 MG/2 ML VIAL IVP SCH ×2 (05:34→13:48)
[2020-11-28] MEDS: Lactated Ringer's 1,000 ML IV SCH ×2 (05:34→15:11)
[2020-11-28 06:40] LABS: INR-International Normal Ratio 3.1; Prothrombin Time 32.5 sec (12.0-14.7)
[2020-11-28 06:50] LABS: Hemoglobin 6.8 g/dL (12.0-16.0); MDiff Complete? YES; Mean Corpuscular HGB CONC 33.3 g/dL (32.0-36.0); Mean Corpuscular Hemoglobin 35.4 pg (27.0-31.0); Mean Platelet Volume 12.5 fL (7.4-10.4); Platelet Count 34 thou/uL (130-400); RBC Distribution Width 20.6 % (11.5-14.5); Red Blood Cell (RBC) Count 1.91 mill/uL (4.20-5.40)
[2020-11-28 06:51] LABS: Band 2 % (5-11); Lymphocytes 2 % (21-51); Macrocytosis MODERATE=16-30 cells (100X) (0-5/hpf); Monocytes 4 % (0-10); Neutrophil 92 % (42-75); Nucleated RBC 2 % (0); Platelet Morphology Comment Appears Decreased
[2020-11-28 06:55] LABS: ALT (SGPT) 93 U/L (8-55); AST (SGOT) 108 U/L (5-34); Albumin 2.4 g/dL (3.4-4.8); Alkaline Phosphatase 84 U/L (40-110); Anion Gap 21 mmol/L (10-20); BUN (Urea Nitrogen) 111 mg/dL (9.8-20.1); Bilirubin, Total 8.9 mg/dL (0.2-1.2); Calc. Creatinine Clearance 45 mL/min (70-130); Carbon Dioxide 18 mmol/L (23-31); Chloride 114 mmol/L (98-107); Globulin 2.2 g/dL (2.4-3.5); Glucose 256 mg/dL (80-115); Potassium 4.3 mmol/L (3.5-5.1); Protein, Total 4.6 g/dL (5.8-8.1); Sodium 149 mmol/L (136-145)
[2020-11-28] MEDS ORDERED: Phytonadione 5 MG TAB PO SCH (08:15)
[2020-11-28] MEDS: azaTHIOprine 50 MG TAB PO SCH (08:47)
[2020-11-28] MEDS: Donepezil HCl 10 MG TAB PER TUBE SCH ×2 (08:47→21:17)
[2020-11-28] MEDS: cefTRIAXone\\ROCEPHIN 1 GM in Sodium Chloride 0.9% 100 ML IVPB SCH (08:47)
[2020-11-28] MEDS: Pantoprazole 40 MG VIAL IVP SCH ×2 (08:48→21:18)
[2020-11-28] MEDS: Nystatin Cream 30 GM TUBE TOP SCH ×3 (08:48→21:18)
[2020-11-28] MEDS: methylPREDNISolone Sod Succ 40 MG VIAL IVP SCH ×2 (08:49→21:18)
[2020-11-28] MEDS: Lantus 1000 UNITS/10 ML VIAL SC SCH (08:49)
[2020-11-28] MEDS ORDERED: Albumin 25% 25 GM/100 ML BOT IVPB SCH (14:30)
[2020-11-28] MEDS ORDERED: Bacteriostatic Water 30 ML VIAL FS PRN (19:15)
[2020-11-28] MEDS: Albumin 25% 25 GM/100 ML BOT IVPB SCH (21:17)
[2020-11-29] MEDS: Albumin 25% 25 GM/100 ML BOT IVPB SCH ×4 (00:55→22:42)
[2020-11-29] MEDS: Morphine 2 MG/ML VIAL SLOW IVP PRN (02:48)
[2020-11-29] MEDS: Donepezil HCl 10 MG TAB PER TUBE SCH ×3 (07:57→23:36)
[2020-11-29] MEDS: azaTHIOprine 50 MG TAB PO SCH (07:57)
[2020-11-29] MEDS: cefTRIAXone\\ROCEPHIN 1 GM in Sodium Chloride 0.9% 100 ML IVPB SCH (07:59)
[2020-11-29] MEDS: methylPREDNISolone Sod Succ 40 MG VIAL IVP SCH ×3 (08:00→22:51)
[2020-11-29] MEDS: Nystatin Cream 30 GM TUBE TOP SCH ×3 (08:00→23:02)
[2020-11-29] MEDS: Pantoprazole 40 MG VIAL IVP SCH ×2 (08:01→22:58)
[2020-11-29 10:05] LABS: Hemoglobin 5.9 g/dL (12.0-16.0); Mean Corpuscular HGB CONC 34.1 g/dL (32.0-36.0); Mean Corpuscular Hemoglobin 34.8 pg (27.0-31.0); Mean Platelet Volume 12.1 fL (7.4-10.4); Platelet Count 32 thou/uL (130-400); RBC Distribution Width 21.7 % (11.5-14.5); Red Blood Cell (RBC) Count 1.69 mill/uL (4.20-5.40); White Blood Cell (WBC) Count 9.6 thou/uL (4.8-10.8)
[2020-11-29 10:16] LABS: INR-International Normal Ratio 3.9; Prothrombin Time 38.8 sec (12.0-14.7)
[2020-11-29 10:30] LABS: ALT (SGPT) 99 U/L (8-55); AST (SGOT) 116 U/L (5-34); Albumin 2.8 g/dL (3.4-4.8); Alkaline Phosphatase 60 U/L (40-110); Anion Gap 19 mmol/L (10-20); Bilirubin, Total 12.5 mg/dL (0.2-1.2); Calc. Creatinine Clearance 36 mL/min (70-130); Carbon Dioxide 19 mmol/L (23-31); Chloride 114 mmol/L (98-107); Globulin 1.7 g/dL (2.4-3.5); Glucose 236 mg/dL (80-115); Potassium 4.3 mmol/L (3.5-5.1); Protein, Total 4.5 g/dL (5.8-8.1); Sodium 148 mmol/L (136-145)
[2020-11-29] MEDS ORDERED: PROPOFOL 200 MG/20 ML VIAL ONE (10:30)
[2020-11-29] MEDS ORDERED: PHENYLEPHRINE-NS 100 MCG/ML 10 ML SYRINGE ONE (10:34)
[2020-11-29 10:42] LABS: BUN (Urea Nitrogen) 127 mg/dL (9.8-20.1)
[2020-11-29 10:44] LABS: Band 3 % (5-11); Lymphocytes 6 % (21-51); MDiff Complete? YES; Monocytes 2 % (0-10); Neutrophil 89 % (42-75); Nucleated RBC 1 % (0); Ovalocytes SLIGHT = 2-5 cells (100X) (0-1/hpf); Platelet Morphology Comment Appears Decreased; Polychromasia MODERATE = 3-4 cells (100X) (0-2/hpf)
[2020-11-29] MEDS: Lantus 1000 UNITS/10 ML VIAL SC SCH (11:00)
[2020-11-29] MEDS ORDERED: Phytonadione 10 MG/ML AMP IVPB SCH (12:00)
[2020-11-29] MEDS: Lactated Ringer's 1,000 ML IV SCH ×2 (12:10→22:58)
[2020-11-29 13:08] VITALS: BMI 36.6
[2020-11-29] MEDS: Phytonadione 10 MG in Sodium Chloride 0.9% 50 ML IVPB SCH (17:27)
[2020-11-29] MEDS ORDERED: Midodrine HCl 5 MG TAB PO SCH (17:30)
[2020-11-29] MEDS: HumaLOG 300 UNITS/3 ML VIAL SC PRN (17:35)
[2020-11-29] MEDS: Octreotide Acetate 1,250 MCG in Sodium Chloride 0.9% 250 ML 250 ML IVPB SCH (17:38)
[2020-11-29 17:52] VITALS: BP 121/73
[2020-11-29 19:25] LABS: Hemoglobin 9.4 g/dL (12.0-16.0)
[2020-11-29] MEDS ORDERED: Lactated Ringer's 1,000 ML IV SCH (21:36)
[2020-11-29 22:46] LABS: Hemoglobin 9.8 g/dL (12.0-16.0); Mean Corpuscular HGB CONC 35.3 g/dL (32.0-36.0); Mean Corpuscular Hemoglobin 33.6 pg (27.0-31.0); Mean Corpuscular Volume 95.2 fL (78.0-98.0); Mean Platelet Volume 12.3 fL (7.4-10.4); Platelet Count 28 thou/uL (130-400); RBC Distribution Width 18.3 % (11.5-14.5); Red Blood Cell (RBC) Count 2.91 mill/uL (4.20-5.40); White Blood Cell (WBC) Count 11.3 thou/uL (4.8-10.8)
[2020-11-29 23:19] LABS: Band 3 % (5-11); MDiff Complete? YES; Metamyelocyte 2 % (0-0); Monocytes 3 % (0-10); Myelocyte 1 % (0-0); Neutrophil 91 % (42-75); Nucleated RBC 2 % (0); Platelet Morphology Comment Appears Decreased; Polychromasia MODERATE = 3-4 cells (100X) (0-2/hpf)
[2020-11-29] MEDS: Midodrine HCl 5 MG TAB PO SCH (23:35)
[2020-11-29] MEDS: Fluconazole In NaCl,Iso-Osm 100 MG in Admixture Fee 1 EACH IVPB SCH (23:44)
[2020-11-30] MEDS: Albumin 25% 25 GM/100 ML BOT IVPB SCH (03:21)
[2020-11-30 04:07] LABS: INR-International Normal Ratio 2.7; Prothrombin Time 28.7 sec (12.0-14.7)
[2020-11-30 04:14] LABS: #Lymphocytes 0.3 thou/uL (1.20-3.40); #Neutrophils 4.3 thou/uL (1.40-6.50); %Eosinophils 0.2 % (0.0-10.0); %Lymphocytes 6.8 % (21.0-51.0); %Neutrophils 92.1 % (42.0-75.0); Mean Corpuscular HGB CONC 34.5 g/dL (32.0-36.0); Mean Corpuscular Hemoglobin 32.9 pg (27.0-31.0); Mean Corpuscular Volume 95.3 fL (78.0-98.0); Mean Platelet Volume 12.7 fL (7.4-10.4); Platelet Count 20 thou/uL (130-400); RBC Distribution Width 18.5 % (11.5-14.5); Red Blood Cell (RBC) Count 2.41 mill/uL (4.20-5.40); White Blood Cell (WBC) Count 4.6 thou/uL (4.8-10.8)
[2020-11-30 04:22] LABS: ALT (SGPT) 74 U/L (8-55); AST (SGOT) 61 U/L (5-34); Albumin 3.2 g/dL (3.4-4.8); Alkaline Phosphatase 58 U/L (40-110); Anion Gap 21 mmol/L (10-20); Bilirubin, Total 14.2 mg/dL (0.2-1.2); Calc. Creatinine Clearance 38 mL/min (70-130); Calcium 8.3 mg/dL (7.8-10.44); Carbon Dioxide 19 mmol/L (23-31); Chloride 113 mmol/L (98-107); Globulin 1.7 g/dL (2.4-3.5); Glucose 264 mg/dL (80-115); Protein, Total 4.9 g/dL (5.8-8.1); Sodium 149 mmol/L (136-145)
[2020-11-30 04:33] LABS: BUN (Urea Nitrogen) 121 mg/dL (9.8-20.1)
[2020-11-30] MEDS: methylPREDNISolone Sod Succ 40 MG VIAL IVP SCH ×3 (06:56→22:36)
[2020-11-30] MEDS ORDERED: Fluconazole In NaCl,Iso-Osm 100 MG in Premix Bag 1 BAG IVPB SCH (09:00)
[2020-11-30] MEDS: Lactated Ringer's 1,000 ML IV SCH ×2 (09:52→16:08)
[2020-11-30] MEDS: azaTHIOprine 50 MG TAB PO SCH (09:57)
[2020-11-30] MEDS: Pantoprazole 40 MG VIAL IVP SCH ×2 (09:57→22:37)
[2020-11-30] MEDS: Lantus 1000 UNITS/10 ML VIAL SC SCH ×2 (09:57→10:45)
[2020-11-30] MEDS: Donepezil HCl 10 MG TAB PER TUBE SCH ×2 (09:57→22:36)
[2020-11-30] MEDS: cefTRIAXone\\ROCEPHIN 1 GM in Sodium Chloride 0.9% 100 ML IVPB SCH (09:57)
[2020-11-30] MEDS: Nystatin Cream 30 GM TUBE TOP SCH ×3 (09:58→22:36)
[2020-11-30] MEDS: Midodrine HCl 5 MG TAB PO SCH ×3 (10:00→22:35)
[2020-11-30 12:23] LABS: Hemoglobin 7.6 g/dL (12.0-16.0)
[2020-11-30] MEDS: Phytonadione 10 MG in Sodium Chloride 0.9% 50 ML IVPB SCH (13:35)
[2020-11-30] MEDS: Octreotide Acetate 1,250 MCG in Sodium Chloride 0.9% 250 ML 250 ML IVPB SCH (18:55)
[2020-11-30] MEDS: Fluconazole In NaCl,Iso-Osm 100 MG in Admixture Fee 1 EACH IVPB SCH (22:35)
[2020-11-30 23:38] LABS: Hemoglobin 7.7 g/dL (12.0-16.0)
[2020-12-01] MEDS: methylPREDNISolone Sod Succ 40 MG VIAL IVP SCH ×2 (05:33→14:24)
[2020-12-01 06:26] LABS: Hemoglobin 8.1 g/dL (12.0-16.0)
[2020-12-01] MEDS ORDERED: Sodium Chloride 0.45% 1,000 ML IV SCH (08:45)
[2020-12-01] MEDS ORDERED: Albumin 25% 25 GM/100 ML BOT IVPB SCH ×2 (09:15→10:00)
[2020-12-01] MEDS: azaTHIOprine 50 MG TAB PO SCH (10:24)
[2020-12-01] MEDS: cefTRIAXone\\ROCEPHIN 1 GM in Sodium Chloride 0.9% 100 ML IVPB SCH (10:24)
[2020-12-01] MEDS: Donepezil HCl 10 MG TAB PER TUBE SCH (10:24)
[2020-12-01] MEDS: Midodrine HCl 5 MG TAB PO SCH ×2 (10:25→14:24)
[2020-12-01] MEDS: Nystatin Cream 30 GM TUBE TOP SCH ×2 (10:25→14:25)
[2020-12-01] MEDS: Lantus 1000 UNITS/10 ML VIAL SC SCH (10:25)
[2020-12-01] MEDS: Pantoprazole 40 MG VIAL IVP SCH (10:26)
[2020-12-01] MEDS: Phytonadione 10 MG in Sodium Chloride 0.9% 50 ML IVPB SCH (11:09)
[2020-12-01] MEDS: Lactated Ringer's 1,000 ML IV SCH (11:09)
[2020-12-01 12:12] VITALS: TEMP 97.5
== END 2020-12-01 14:43 | disposition hospice, inpatient (51) | DRG 441 ==
LOC: T4-B 22:45 → IMCU/EMU 11-29 22:10
PROVIDERS: ADMIT Internal Medicine; ATTEND Internal Medicine
PROC: 0DH67UZ Insertion of Feeding Device into Stomach, Via Natural or Artificial Opening (ICD-10-PCS; principal; 2020-11-24)
PROC: 30233K1 Transfusion of Nonautologous Frozen Plasma into Peripheral Vein, Percutaneous Approach (ICD-10-PCS; 2020-11-26)
PROC: 30233N1 Transfusion of Nonautologous Red Blood Cells into Peripheral Vein, Percutaneous Approach (ICD-10-PCS; 2020-11-28)
PROC: 0DH67UZ Insertion of Feeding Device into Stomach, Via Natural or Artificial Opening (ICD-10-PCS; 2020-11-29)
PROC: 0DJ08ZZ Inspection of Upper Intestinal Tract, Via Natural or Artificial Opening Endoscopic (ICD-10-PCS; 2020-11-29)
DX: K72.00 Acute and subacute hepatic failure without coma (principal); G93.41 Metabolic encephalopathy; K76.7 Hepatorenal syndrome; R57.8 Other shock; R18.8 Other ascites; E87.2 Acidosis; N17.9 Acute kidney failure, unspecified; K76.6 Portal hypertension; E87.0 Hyperosmolality and hypernatremia; D61.818 Other pancytopenia; K92.1 Melena; D68.8 Other specified coagulation defects; N39.0 Urinary tract infection, site not specified; Z20.822 Contact with and (suspected) exposure to COVID-19; Z66 Do not resuscitate; E86.0 Dehydration; E88.09 Other disorders of plasma-protein metabolism, not elsewhere classified; K74.60 Unspecified cirrhosis of liver; F25.0 Schizoaffective disorder, bipolar type; E03.9 Hypothyroidism, unspecified; N18.30 Chronic kidney disease, stage 3 unspecified; K75.4 Autoimmune hepatitis; G30.9 Alzheimer's disease, unspecified; F02.80 Dementia in other diseases classified elsewhere, unspecified severity, without behavioral disturbance, psychotic disturbance, mood disturbance, and anxiety; I45.81 Long QT syndrome; R16.1 Splenomegaly, not elsewhere classified; E87.6 Hypokalemia; K29.50 Unspecified chronic gastritis without bleeding; K25.7 Chronic gastric ulcer without hemorrhage or perforation; E66.9 Obesity, unspecified; Z68.39 Body mass index [BMI] 39.0-39.9, adult; Z88.5 Allergy status to narcotic agent; Z79.899 Other long term (current) drug therapy; Z90.49 Acquired absence of other specified parts of digestive tract
CPT/HCPCS: 36415; 36416; 36430; 70551; 71045; 74018; 78278; 80053; 80074; 80202; 81001; 82105; 82140; 82570; 83735; 84100; 84156; 84300; 84540; 85014; 85018; 85025; 85027; 85610; 86850; 86900; 86901; 87040; 87086; 95712; 95819; 95957; A9604; C9113; J0696; J1450; J1815; J2270; J2354; J2704; J2765; J2920; J3370; J3430; J3490; J7030; J7050; J7070; J7120; J7500; P9016; P9035; P9047; P9059; U0003; U0005

== ENCOUNTER 2020-12-01 15:24 | Inpatient (IN) | payer OTHER ==
[2020-12-01] MEDS ORDERED: Scopolamine 1.5 mg/72 hour Patch TOP PRN (16:15)
[2020-12-01] MEDS ORDERED: Haloperidol Lactate 5 MG/ML VIAL SLOW IVP PRN (16:15)
[2020-12-01] MEDS ORDERED: Ondansetron PF 4 MG/2 ML Vial IVP PRN (16:15)
[2020-12-01] MEDS ORDERED: Lorazepam 2 MG/ML VIAL SLOW IVP PRN (16:17)
[2020-12-01] MEDS ORDERED: Bisacodyl 10 MG SUPP PR PRN (16:19)
[2020-12-01] MEDS ORDERED: Morphine 2 MG/ML VIAL SLOW IVP PRN (16:20)
[2020-12-01] MEDS: Morphine 4 MG/ML VIAL SLOW IVP SCH ×3 (16:45→21:11)
[2020-12-01] MEDS: Lorazepam 2 MG/ML VIAL SLOW IVP SCH ×2 (17:44→21:11)
[2020-12-02] MEDS: Morphine 4 MG/ML VIAL SLOW IVP SCH ×8 (00:34→12:21)
[2020-12-02] MEDS: Lorazepam 2 MG/ML VIAL SLOW IVP SCH ×4 (00:47→11:59)
[2020-12-02 07:44] VITALS: TEMP 97.4
== END 2020-12-02 13:43 | disposition expired | DRG 951 ==
LOC: IMCU/EMU 15:24
PROVIDERS: ADMIT Family Medicine; ATTEND Family Medicine
DX: Z51.5 Encounter for palliative care (principal); K76.7 Hepatorenal syndrome; G93.41 Metabolic encephalopathy; Z66 Do not resuscitate; N17.9 Acute kidney failure, unspecified; R18.8 Other ascites; K72.90 Hepatic failure, unspecified without coma; K75.4 Autoimmune hepatitis; N18.30 Chronic kidney disease, stage 3 unspecified; D69.6 Thrombocytopenia, unspecified; K74.60 Unspecified cirrhosis of liver; F03.90 Unspecified dementia, unspecified severity, without behavioral disturbance, psychotic disturbance, mood disturbance, and anxiety; E03.9 Hypothyroidism, unspecified; Z88.8 Allergy status to other drugs, medicaments and biological substances
CPT/HCPCS: J2060; J2270